=== PATIENT | male | born 1945 | race Caucasian/White ===

== ENCOUNTER → 2016-08-17 | Outpatient (CLI) | payer MEDICARE, OTHER ==
[~2016-08-17] MED LIST: ASCO-96 PO; ASPI-515 PO; ATOR40TA PO; ATOR40TA78 PO; CALC-141 PO; CHOL100018 PO; GABA300C PO; GABA300C10 PO; HYDR-3307 PO; IBUP-1222 PO; LEVO50TA5 PO; LOSA25TA5 PO; METF500T4 PO; OMEG1CAP2 PO; OMEP20CA9 PO; POLY17PO3 PO; SERT100T PO; TRAZ50TA18 PO; [UNRECOGNIZED DRUG - OTHER] PO
[2016-08-17 09:18] LABS: BLOOD UREA NITROGEN 14 mg/dL (7-18)
[2016-08-17 09:21] LABS: ASPARTATE AMINO TRANSFERASE 18 U/L (15-37)
== END | disposition home or self-care (01) ==
LOC: STAR 08:02
PROVIDERS: ATTEND Neurological Surgery
DX: Z01.811 Encounter for preprocedural respiratory examination (principal); M48.06 Spinal stenosis, lumbar region; M47.894 Other spondylosis, thoracic region; R79.1 Abnormal coagulation profile
CPT/HCPCS: 36415; 71020; 80053; 83036; 85025; 85610; 85730; 93005

== ENCOUNTER 2016-08-31 12:09 | Observation (INO) | payer MEDICARE, OTHER ==
[2016-08-17 09:11] VITALS: BP 160/90
[~2016-08-31] VITALS: Ht 177.8 cm; Wt 89.4 kg
[~2016-08-31 12:09] MED LIST changes: +BACITRACIN 50,000 UNIT ONE; +BUPIVACAINE/PF-EPI 0.5% 1:200K ONE; +THROMBIN 5,000 UNIT VIAL TP ONE
[2016-08-31] MEDS ORDERED: LIDOCAINE 1%, 2ML SQ PRN (12:30)
[2016-08-31] MEDS ORDERED: LIDOCAINE 1%, 2ML ONE (12:32)
[2016-08-31] MEDS: LACTATED RINGERS 1,000 ML IV SCH ×2 (12:51→22:02)
[2016-08-31] MEDS ORDERED: BUPIVACAINE/PF-EPI 0.5% 1:200K ONE (14:18)
[2016-08-31] MEDS ORDERED: MIDAZOLAM 1 MG/ML, 2ML ONE (15:05)
[2016-08-31] MEDS ORDERED: FENTANYL PF 250 MCG/5ML ONE (15:05)
[2016-08-31] MEDS ORDERED: ACETAMINOPHEN 500 MG TABLET ONE (15:28)
[2016-08-31] MEDS ORDERED: ETOMIDATE 40 MG/20 ML ONE (15:41)
[2016-08-31] MEDS ORDERED: GLYCOPYRROLATE 0.2MG/1ML ONE (15:41)
[2016-08-31] MEDS ORDERED: METOCLOPRAMIDE 5 MG/ML, 2ML ONE (15:41)
[2016-08-31] MEDS ORDERED: ROCURONIUM 10 MG/ML ONE (15:41)
[2016-08-31] MEDS ORDERED: NEOSTIGMINE 1 MG/ML, 10ML ONE (15:41)
[2016-08-31] MEDS ORDERED: PHENYLEPHRINE 10 MG/ML ONE (15:41)
[2016-08-31] MEDS ORDERED: ONDANSETRON 2MG/ML, 2ML ONE (15:41)
[2016-08-31] MEDS ORDERED: CEFAZOLIN 1,000 MG ONE (15:41)
[2016-08-31] MEDS ORDERED: HYDROmorphone 1 MG/ML, 1ML ONE (16:03)
[2016-08-31] MEDS: FENTANYL PF 100 MCG/2ML IV PRN ×2 (17:15→17:20)
[2016-08-31] MEDS ORDERED: HYDROmorphone PCA 30 MG/30 ML ONE (17:15)
[2016-08-31] MEDS ORDERED: FENTANYL PF 100 MCG/2ML ONE (17:15)
[2016-08-31] MEDS ORDERED: HYDROmorphone 2 MG/ML, 1ML ONE (17:15)
[2016-08-31] MEDS ORDERED: OXYcodone 5 MG/5 ML ORAL.SOL UDC ONE (17:27)
[2016-08-31] MEDS ORDERED: OXYcodone 5 MG/5 ML ORAL.SOL UDC PO PRN (17:30)
[2016-08-31] MEDS ORDERED: ONDANSETRON 2MG/ML, 2ML IVPush PRN ×2 (17:30)
[2016-08-31] MEDS ORDERED: hydrALAzine 20 MG/ML, 1ML IV PRN (17:30)
[2016-08-31] MEDS ORDERED: MEPERIDINE/PF 100 MG/ML IM PRN (17:30)
[2016-08-31] MEDS ORDERED: TIZANIDINE 4MG TABLET PO PRN (17:30)
[2016-08-31] MEDS ORDERED: LABETALOL 5MG/ML, 20ML IV PRN (17:30)
[2016-08-31] MEDS ORDERED: PROMETHAZINE 25 MG/ML, 1ML IM PRN (17:30)
[2016-08-31] MEDS ORDERED: PROMETHAZINE 25 MG/ML, 1ML IV PRN (17:30)
[2016-08-31] MEDS ORDERED: EPHEDRINE 50 MG/ML, 1ML IVPush PRN (17:30)
[2016-08-31] MEDS ORDERED: MAGNESIUM HYDROXIDE 8%, 30ML UDC PO PRN (17:30)
[2016-08-31] MEDS ORDERED: morphine SULFATE 10 MG/ML, 1ML IVPush PRN (17:30)
[2016-08-31] MEDS ORDERED: HYDROmorphone PCA 30 MG/30 ML IV PRN (17:30)
[2016-08-31] MEDS ORDERED: BISACODYL 10 MG SUPP PR PRN (17:30)
[2016-08-31] MEDS ORDERED: OXYcodone/APAP 5/325MG TABLET PO PRN (17:30)
[2016-08-31] MEDS ORDERED: METOPROLOL 1 MG/ML, 5ML IV PRN (17:30)
[2016-08-31] MEDS ORDERED: DIAZEPAM 5 MG TABLET PO PRN (17:30)
[2016-08-31] MEDS ORDERED: PHARMACY MAY ADJ FOR RENAL FX MC PRN (17:30)
[2016-08-31] MEDS: HYDROmorphone 1 MG/ML, 1ML IV PRN ×3 (17:35→17:53)
[2016-08-31 19:30] VITALS: BP 144/55
[2016-08-31] MEDS: OMEPRAZOLE 20 MG CAPSULE.DR PO SCH (20:00)
[2016-08-31] MEDS ORDERED: metFORMIN XR 500 MG TAB.ER.24H PO SCH (21:00)
[2016-08-31] MEDS: SODIUM CHLORIDE FLUSH 10ML SYR IVF SCH (21:00)
[2016-08-31] MEDS ORDERED: LOSARTAN 25MG TABLET PO SCH (21:00)
[2016-08-31] MEDS ORDERED: GABAPENTIN 300 MG CAPSULE PO SCH (21:00)
[2016-08-31] MEDS ORDERED: TRAZODONE 100MG TABLET PO SCH (21:00)
[2016-08-31] MEDS ORDERED: ATORVASTATIN 40 MG TABLET PO SCH (21:00)
[2016-08-31] MEDS: NS + 20MEQ KCL 1,000 ML IV SCH (22:02)
[2016-08-31] MEDS: CEFAZOLIN PMX 1GM/50ML 50 ML IVPB SCH (22:03)
[2016-09-01] MEDS: LACTATED RINGERS 1,000 ML IV SCH (00:09)
[2016-09-01 00:45] VITALS: BP 135/68
[2016-09-01 04:03] VITALS: BP 134/73
[2016-09-01] MEDS: HYDROcodone/APAP 10/325 MG TABLET PO PRN ×2 (05:29→09:13)
[2016-09-01] MEDS: CEFAZOLIN PMX 1GM/50ML 50 ML IVPB SCH (05:32)
[2016-09-01] MEDS: NS + 20MEQ KCL 1,000 ML IV SCH (05:32)
[2016-09-01] MEDS ORDERED: LEVOTHYROXINE 50 MCG TABLET PO SCH (06:00)
[2016-09-01 07:45] VITALS: BP 136/78
[2016-09-01] MEDS ORDERED: SENNA/DOCUSATE TABLET PO SCH (09:00)
[2016-09-01] MEDS ORDERED: POLYETHYLENE GLYCOL 17 GM PACKET PO SCH (09:00)
[2016-09-01] MEDS: OMEPRAZOLE 20 MG CAPSULE.DR PO SCH (09:14)
[2016-09-01] MEDS: SODIUM CHLORIDE FLUSH 10ML SYR IVF SCH (09:14)
[2016-09-01] MEDS ORDERED: HYDR-3307 PO (11:01)
[2016-09-01] MEDS ORDERED: TIZA2CAP2 PO (11:02)
[2016-09-01 11:15] VITALS: BP 118/67
== END 2016-09-01 11:54 | disposition home or self-care (01) ==
LOC: OUT 12:09 → ORIP 17:14 → 4NOR 18:42 → DCLOUNGE 09-01 11:42
PROVIDERS: ADMIT Neurological Surgery; ATTEND Neurological Surgery
DX: M54.17 Radiculopathy, lumbosacral region (principal); M48.07 Spinal stenosis, lumbosacral region
CPT/HCPCS: 63047; 63048; 72100; 82962; 96365; 96372; 96375; 96376; 97161; 97165; G0378; J0690; J1170; J2250; J2370; J2405; J2550; J2710; J2765; J3010; J3480; J3490; J7120

== ENCOUNTER 2017-02-14 15:26 | Inpatient (IN) | payer MEDICARE, OTHER ==
[~2017-02-14] VITALS: Ht 177.8 cm; Wt 86.0 kg
[~2017-02-14 15:26] MED LIST changes: -BACITRACIN 50,000 UNIT ONE; -BUPIVACAINE/PF-EPI 0.5% 1:200K ONE; +CHOL100012 PO; -CHOL100018 PO; -THROMBIN 5,000 UNIT VIAL TP ONE; +TIZA2CAP2 PO
[2017-02-14] MEDS ORDERED: PLEASE ENTER HEIGHT AND WEIGHT MC SCH (16:00)
[2017-02-14 16:21] LABS: HEMATOCRIT 37.6 % (39.2-51.8); HEMOGLOBIN 12.5 g/dL (13.7-18.0); WHITE BLOOD COUNT 9.8 x10^3/uL (3.4-10)
[2017-02-14 16:31] LABS: BLOOD UREA NITROGEN 16 mg/dL (7-18)
[2017-02-14 16:32] VITALS: BP 138/81
[2017-02-14 16:34] LABS: ASPARTATE AMINO TRANSFERASE 12 U/L (15-37)
[2017-02-14] MEDS ORDERED: MORPHINE SULFATE 4 MG/ML, 1ML IVPush PRN (17:00)
[2017-02-14] MEDS ORDERED: DIPHENHYDRAMINE 25 MG CAPSULE PO PRN (17:00)
[2017-02-14] MEDS ORDERED: PROMETHAZINE 25 MG/ML, 1ML IM PRN (17:00)
[2017-02-14] MEDS ORDERED: ACETAMINOPHEN 500 MG TABLET PO PRN (17:00)
[2017-02-14] MEDS ORDERED: ACETAMINOPHEN 650 MG SUPP PR PRN (17:00)
[2017-02-14] MEDS ORDERED: DIPHENHYDRAMINE 50 MG/ML, 1ML IVPush PRN (17:00)
[2017-02-14] MEDS ORDERED: hydrALAzine 20 MG/ML, 1ML IV PRN ×2 (17:00→21:30)
[2017-02-14] MEDS ORDERED: ENOXAPARIN 30 MG/0.3 ML SQ SCH (17:00)
[2017-02-14] MEDS ORDERED: OMNIPAQUE 350 MG/ML, 100ML BOTTLE ONE (18:29)
[2017-02-14] MEDS ORDERED: POTASSIUM CHLORIDE 20 MEQ in LACTATED RINGERS 1,000 ML IV SCH (19:00)
[2017-02-14 19:08] VITALS: BP 151/70
[2017-02-14] MEDS ORDERED: BUPIVACAINE/PF 0.5% ONE (20:41)
[2017-02-14] MEDS ORDERED: EPINEPHRINE 1 MG/ML, 1ML ONE (20:41)
[2017-02-14] MEDS ORDERED: FENTANYL PF 100 MCG/2ML ONE ×4 (20:52→23:13)
[2017-02-14] MEDS ORDERED: MIDAZOLAM 1 MG/ML, 2ML ONE (20:52)
[2017-02-14] MEDS ORDERED: ROCURONIUM 10 MG/ML ONE (20:53)
[2017-02-14] MEDS ORDERED: SUCCINYLCHOLINE 20 MG/ML, 10ML ONE (20:53)
[2017-02-14] MEDS ORDERED: PROPOFOL 10 MG/ML, 20ML ONE (20:53)
[2017-02-14] MEDS ORDERED: DEXAMETHASONE 4 MG/ML, 1ML ONE (21:11)
[2017-02-14] MEDS ORDERED: CEFAZOLIN 1,000 MG ONE (21:11)
[2017-02-14] MEDS ORDERED: ONDANSETRON 2MG/ML, 2ML ONE (21:11)
[2017-02-14] MEDS ORDERED: LABETALOL 5MG/ML, 20ML IV PRN (21:30)
[2017-02-14] MEDS ORDERED: PROMETHAZINE 25 MG/ML, 1ML IV PRN (21:30)
[2017-02-14] MEDS ORDERED: ACETAMINOPHEN 325 MG TABLET PO PRN (21:30)
[2017-02-14] MEDS ORDERED: ONDANSETRON 2MG/ML, 2ML IVPush PRN (21:30)
[2017-02-14] MEDS ORDERED: OXYcodone 5 MG/5 ML ORAL.SOL UDC PO PRN (21:30)
[2017-02-14] MEDS ORDERED: HYDROmorphone 1 MG/ML, 1ML IV PRN (21:30)
[2017-02-14] MEDS ORDERED: MEPERIDINE/PF 25MG/0.5ML IVPush PRN (21:30)
[2017-02-14] MEDS ORDERED: BUPIVACAINE/PF 0.5% INFIL ONE (21:33)
[2017-02-14] MEDS ORDERED: EPINEPHRINE 1 MG/ML, 1ML INFIL ONE (21:34)
[2017-02-14] MEDS ORDERED: OXYcodone 5 MG/5 ML ORAL.SOL UDC ONE (22:57)
[2017-02-14] MEDS: FENTANYL PF 100 MCG/2ML IV PRN ×2 (23:14→23:21)
[2017-02-15] MEDS ORDERED: HYDROmorphone 1 MG/ML, 1ML ONE (00:07)
[2017-02-15] MEDS ORDERED: KETOROLAC 30 MG/1 ML IV PRN (00:30)
[2017-02-15] MEDS ORDERED: LORazepam 2 MG/ML, 1ML IV PRN (00:30)
[2017-02-15] MEDS ORDERED: DIPHENHYDRAMINE 25 MG CAPSULE PO PRN (00:30)
[2017-02-15] MEDS ORDERED: ENALAPRILAT 1.25 MG/ML, 2ML IV PRN (00:30)
[2017-02-15] MEDS ORDERED: DIPHENHYDRAMINE 50 MG/ML, 1ML IV PRN (00:30)
[2017-02-15] MEDS ORDERED: LORazepam 1MG TABLET PO PRN (00:30)
[2017-02-15] MEDS ORDERED: ACETAMINOPHEN 650 MG SUPP PR PRN (00:30)
[2017-02-15] MEDS ORDERED: ONDANSETRON 2MG/ML, 2ML IV PRN (00:30)
[2017-02-15] MEDS ORDERED: hydrALAzine 20 MG/ML, 1ML IV PRN (00:30)
[2017-02-15] MEDS: POTASSIUM CHLORIDE 20 MEQ in LACTATED RINGERS 1,000 ML IV SCH ×2 (00:30→11:36)
[2017-02-15] MEDS: ENOXAPARIN 40 MG/0.4 ML SQ SCH ×2 (00:30→04:22)
[2017-02-15] MEDS ORDERED: HYDROmorphone 1 MG/ML, 1ML IV PRN (00:30)
[2017-02-15] MEDS ORDERED: ACETAMINOPHEN 325 MG TABLET PO PRN (00:30)
[2017-02-15 08:55] VITALS: BP 104/62
[2017-02-15] MEDS: OMEPRAZOLE 20 MG CAPSULE.DR PO SCH ×2 (11:31→21:34)
[2017-02-15 15:02] VITALS: BP 132/58
[2017-02-15 19:03] VITALS: BP 116/55
[2017-02-15] MEDS ORDERED: GABAPENTIN 300 MG CAPSULE PO SCH (21:00)
[2017-02-15] MEDS ORDERED: ATORVASTATIN 40 MG TABLET PO SCH (21:00)
[2017-02-15] MEDS ORDERED: TRAZODONE 100MG TABLET PO SCH (21:00)
[2017-02-15] MEDS ORDERED: LOSARTAN 25MG TABLET PO SCH (21:00)
[2017-02-16 04:00] VITALS: BP 116/58
[2017-02-16 05:22] LABS: BLOOD UREA NITROGEN 17 mg/dL (7-18)
[2017-02-16 05:25] LABS: HEMATOCRIT 32.5 % (39.2-51.8); HEMOGLOBIN 11.1 g/dL (13.7-18.0); WHITE BLOOD COUNT 12.4 x10^3/uL (3.4-10)
[2017-02-16] MEDS: ENOXAPARIN 40 MG/0.4 ML SQ SCH (05:27)
[2017-02-16] MEDS ORDERED: LEVOTHYROXINE 50 MCG TABLET PO SCH (06:00)
[2017-02-16 06:56] VITALS: BP 106/60
[2017-02-16] MEDS: OMEPRAZOLE 20 MG CAPSULE.DR PO SCH (08:49)
[2017-02-16] MEDS ORDERED: ASPIRIN 81 MG TABLET CHEW PO SCH (09:00)
[2017-02-16] MEDS ORDERED: HYDR-3307 PO (10:35)
== END 2017-02-16 10:41 | disposition home or self-care (01) | DRG 350 ==
LOC: 4NOR 15:26 → DCLOUNGE 02-16 10:25
PROVIDERS: ADMIT Surgery; ATTEND Surgery
PROC: 01BB0ZX Excision of Lumbar Nerve, Open Approach, Diagnostic (ICD-10-PCS; 2017-02-14)
PROC: 0YU60JZ Supplement Left Inguinal Region with Synthetic Substitute, Open Approach (ICD-10-PCS; principal; 2017-02-14 21:00)
DX: K40.30 Unilateral inguinal hernia, with obstruction, without gangrene, not specified as recurrent (principal); K56.2 Volvulus; I10 Essential (primary) hypertension; I73.9 Peripheral vascular disease, unspecified; Z95.820 Peripheral vascular angioplasty status with implants and grafts; Z79.82 Long term (current) use of aspirin; Z79.02 Long term (current) use of antithrombotics/antiplatelets; Z88.8 Allergy status to other drugs, medicaments and biological substances
CPT/HCPCS: 36415; 74177; 80048; 80053; 82040; 85025; 85610; 85730; 88302; 93005; J0171; J0690; J1100; J1170; J1650; J2250; J2405; J2704; J3010; J3480; J3490; Q9967; C1781; J0330; J7120

== ENCOUNTER 2017-07-15 08:20 | Day surgery (SDC) | payer MEDICARE, OTHER ==
[~2017-07-15] VITALS: Ht 177.8 cm; Wt 87.1 kg
[~2017-07-15 08:20] MED LIST changes: +BUPIVACAINE/PF 0.5% ONE; +DULO30CA2 PO; +methylPREDNISolone *ACETATE* 40 MG/ML ONE; +methylPREDNISolone*ACETATE* 80 MG/ML ONE
[2017-07-15] MEDS ORDERED: LACTATED RINGERS 1,000 ML IV SCH (08:54)
[2017-07-15 08:56] VITALS: BP 157/85
[2017-07-15] MEDS ORDERED: LIDOCAINE-MPF 1%, 2ML ONE (09:03)
[2017-07-15] MEDS ORDERED: LIDOCAINE-MPF 1%, 2ML INFIL ONE (09:30)
[2017-07-15] MEDS ORDERED: MIDAZOLAM 1 MG/ML, 2ML ONE (09:57)
[2017-07-15] MEDS ORDERED: FENTANYL PF 250 MCG/5ML ONE (09:58)
[2017-07-15] MEDS ORDERED: PROPOFOL 10 MG/ML, 20ML ONE (09:58)
[2017-07-15] MEDS ORDERED: SODIUM CHLORIDE 0.9% PF 10ML ONE (09:59)
[2017-07-15] MEDS ORDERED: CEFAZOLIN 1,000 MG ONE ×2 (09:59)
[2017-07-15] MEDS ORDERED: EPINEPHRINE 1 MG/ML, 1ML ONE (10:38)
[2017-07-15] MEDS ORDERED: FENTANYL PF 100 MCG/2ML IV PRN (11:00)
[2017-07-15] MEDS ORDERED: MEPERIDINE/PF 25MG/0.5ML IVPush PRN (11:00)
[2017-07-15] MEDS ORDERED: ONDANSETRON 2MG/ML, 2ML IVPush PRN (11:00)
[2017-07-15] MEDS ORDERED: HYDROmorphone 1 MG/ML, 1ML IV PRN (11:00)
[2017-07-15] MEDS ORDERED: ACETAMINOPHEN 325 MG TABLET PO PRN (11:00)
[2017-07-15] MEDS ORDERED: hydrALAzine 20 MG/ML, 1ML IV PRN (11:00)
[2017-07-15] MEDS ORDERED: morphine SULFATE 10 MG/ML, 1ML IV PRN (11:00)
[2017-07-15] MEDS ORDERED: PROMETHAZINE 12.5 MG SUPP PR PRN (11:00)
[2017-07-15] MEDS ORDERED: PROMETHAZINE 25 MG/ML, 1ML IV PRN (11:00)
[2017-07-15] MEDS ORDERED: LABETALOL 5MG/ML, 20ML IV PRN (11:00)
[2017-07-15] MEDS ORDERED: OXYcodone 5 MG/5 ML ORAL.SOL UDC PO PRN (11:00)
[2017-07-15] MEDS ORDERED: ONDANSETRON 2MG/ML, 2ML ONE (11:09)
[2017-07-15] MEDS ORDERED: EPINEPHRINE 1 MG/ML, 1ML INFIL ONE (11:19)
[2017-07-15] MEDS ORDERED: OXYcodone 5 MG/5 ML ORAL.SOL UDC ONE (12:28)
[2017-07-15] MEDS ORDERED: ACETAMINOPHEN 325 MG TABLET ONE (12:28)
== END 2017-07-15 13:45 ==
LOC: OUT 08:20
PROVIDERS: ATTEND Orthopaedic Surgery Orthopaedic Surgery of the Spine
DX: S83.231A Complex tear of medial meniscus, current injury, right knee, initial encounter (principal); M23.251 Derangement of posterior horn of lateral meniscus due to old tear or injury, right knee; M67.51 Plica syndrome, right knee; M94.261 Chondromalacia, right knee; I10 Essential (primary) hypertension; K21.9 Gastro-esophageal reflux disease without esophagitis; E03.9 Hypothyroidism, unspecified; E11.9 Type 2 diabetes mellitus without complications; Z87.442 Personal history of urinary calculi; Z98.890 Other specified postprocedural states; Y93.89 Activity, other specified; X58.XXXA Exposure to other specified factors, initial encounter; Y92.89 Other specified places as the place of occurrence of the external cause; Y99.8 Other external cause status
CPT/HCPCS: 29880; 82962; J0171; J0690; J1030; J1040; J2250; J2405; J2704; J3010; J3490; J7120

== ENCOUNTER → 2019-04-02 | Outpatient (CLI) | payer MEDICARE, OTHER ==
[~2019-04-02] MED LIST changes: -BUPIVACAINE/PF 0.5% ONE; -HYDR-3307 PO; +HYDR-36 PO; +LOSA25TA25 PO; -LOSA25TA5 PO; +METF500T17 PO; -METF500T4 PO; +POLY17PO29 PO; -POLY17PO3 PO; +REGADENOSON 0.4 MG/5 ML SYRINGE ONE; -TRAZ50TA18 PO; +TRAZ50TA66 PO; -methylPREDNISolone *ACETATE* 40 MG/ML ONE; -methylPREDNISolone*ACETATE* 80 MG/ML ONE
== END | disposition home or self-care (01) ==
LOC: CFH 08:13
PROVIDERS: ATTEND Internal Medicine Cardiovascular Disease
DX: I21.19 ST elevation (STEMI) myocardial infarction involving other coronary artery of inferior wall (principal); I25.9 Chronic ischemic heart disease, unspecified; I10 Essential (primary) hypertension; E11.9 Type 2 diabetes mellitus without complications
CPT/HCPCS: 78452; 93017; A9502; J2785

== ENCOUNTER → 2019-07-26 | Outpatient (CLI) | payer OTHER ==
[~2019-07-26] MED LIST changes: -REGADENOSON 0.4 MG/5 ML SYRINGE ONE
== END | disposition home or self-care (01) ==
LOC: CVU 14:28
PROVIDERS: ATTEND Internal Medicine Cardiovascular Disease
DX: I65.23 Occlusion and stenosis of bilateral carotid arteries (principal)
CPT/HCPCS: 93880

== ENCOUNTER → 2020-05-19 | Outpatient (CLI) | payer MEDICARE ==
[~2020-05-19] MED LIST changes: +HYDR-3248 PO; -HYDR-36 PO; +LANS30CA PO; +LUTEIN PO; +METR45CR TP; +ZEAXANTHIN PO
[2020-05-19 14:58] LABS: BASOPHILS % (AUTO) 1 % (0-1); EOSINOPHILS % (AUTO) 1 % (1-7); LYMPHOCYTES % (AUTO) 21 % (22-44); MEAN CORPUSCULAR HEMOGLOBIN 31.4 pg (27.5-34.5); MEAN CORPUSCULAR HGB CONC 33.4 g/dL (33.2-36.2); MEAN PLATELET VOLUME 8.1 fL (7.4-10.4); MONOCYTES % (AUTO) 6 % (2-9); NEUTROPHILS % (AUTO) 72 % (42-75); PLATELET COUNT 167 x10^3/uL (130-400); RED BLOOD COUNT 4.27 x10^6/uL (4.38-5.82); RED CELL DISTRIBUTION WIDTH 13.4 % (9.4-14.8)
[2020-05-19 15:02] LABS: MD NO
[2020-05-19 15:06] LABS: ALBUMIN 4.1 g/dL (3.4-5.0); ANION GAP 3 mmol/L (5-15); CALCIUM 9.2 mg/dL (8.5-10.1); CHLORIDE 109 mmol/L (98-107)
[2020-05-19 15:09] LABS: ALANINE AMINOTRANSFERASE 18 U/L (12-78); ALKALINE PHOSPHATASE 85 U/L (45-117); BILIRUBIN,TOTAL 1.1 mg/dL (0.2-1.0); CREATININE 0.89 mg/dL (0.7-1.3)
== END | disposition home or self-care (01) ==
LOC: STAR 13:39
PROVIDERS: ATTEND Surgery
DX: Z01.812 Encounter for preprocedural laboratory examination (principal)
CPT/HCPCS: 36415; 80053; 85025

== ENCOUNTER 2020-05-23 10:20 | Day surgery (SDC) | payer MEDICARE ==
[~2020-05-23] VITALS: Ht 177.8 cm; Wt 77.4 kg
[~2020-05-23 10:20] MED LIST changes: -ASPI-515 PO; +ASPI-963 PO
[2020-05-23 10:44] VITALS: BP 124/77
[2020-05-23] MEDS ORDERED: VISIPAQUE 270 MG/ML, 50ML BOTTLE ONE (12:00)
[2020-05-23] MEDS ORDERED: FENTANYL PF 100 MCG/2ML ONE ×2 (12:17)
[2020-05-23] MEDS ORDERED: PROTAMINE SULFATE 10 MG/ML, 25ML ONE (12:17)
[2020-05-23] MEDS ORDERED: NALOXONE 1 MG/ML, 2ML ONE (12:17)
[2020-05-23] MEDS ORDERED: HEPARIN 1,000 UNITS/ML, 10ML ONE (12:17)
[2020-05-23] MEDS ORDERED: FLUMAZENIL 0.1 MG/1 ML, 5ML ONE (12:17)
[2020-05-23] MEDS ORDERED: MIDAZOLAM 1 MG/ML, 5ML ONE (12:17)
[2020-05-23] MEDS ORDERED: LIDOCAINE 1%, 10ML ONE ×3 (13:30→13:42)
== END 2020-05-23 16:55 | disposition home or self-care (01) ==
LOC: OUT 10:20
PROVIDERS: ATTEND Surgery
DX: I70.211 Atherosclerosis of native arteries of extremities with intermittent claudication, right leg (principal); I74.09 Other arterial embolism and thrombosis of abdominal aorta; E11.9 Type 2 diabetes mellitus without complications; E03.9 Hypothyroidism, unspecified; Z90.49 Acquired absence of other specified parts of digestive tract; Z98.890 Other specified postprocedural states; Z96.641 Presence of right artificial hip joint; Z79.82 Long term (current) use of aspirin; Z79.899 Other long term (current) drug therapy; Z87.891 Personal history of nicotine dependence; Z79.84 Long term (current) use of oral hypoglycemic drugs
CPT/HCPCS: 37220; 75630; 82962; 99156; 99157; C1725; J1644; J2250; J2720; J3010; Q9966; 76937; J2310